=== PATIENT | female | born 1995 | race Caucasian/White ===

== ENCOUNTER 2016-11-05 09:32 | Outpatient (CLI) | payer MEDICAID ==
[2016-11-05] MEDS ORDERED: AZITHROMYCIN 250 MG TABLET ONE (10:04)
[2016-11-05 10:32] LABS: APPEARANCE,URINE CLOUDY; BILIRUBIN,URINE NEGATIVE (NEGATIVE); GLUCOSE, URINE NEGATIVE (NEGATIVE); KETONES,URINE NEGATIVE (NEGATIVE); LEUKOCYTE ESTERASE,URINE LARGE (NEGATIVE); NITRITE,URINE NEGATIVE (NEGATIVE); PROTEIN,URINE 100 mg/dL (NEGATIVE); URINE SPECIFIC GRAVITY 1.018
[2016-11-05 10:38] LABS: URINE BARBITURATES SCREEN NEGATIVE; URINE METHADONE SCREEN NEGATIVE; URINE OPIATES LOW NEGATIVE; URINE PHENCYCLIDINE SCREEN NEGATIVE
[2016-11-05] MEDS ORDERED: AZITHROMYCIN 1 GM SUSP PACKET PO ONE (11:30)
--- NOTE | 2016-11-05 12:16 | Non Stress Test Report ---
Non Stress Test Datetime Report Generated by CPN: 11/05/2016 12:15 DEMOGRAPHIC EGA NST: 36.6 INDICATION Indication for Study: Ordered by Provider Indication for Study (NST) Other: LC MONITORING Monitor Explained: Monitor Explained; Test Explained; Patient Verbalized Understanding Time on Monitor: 11/05/2016 09:56 Time off Monitor: 11/05/2016 11:05 NST Duration: 69 NST INTERVENTIONS NST Interventions: PO Hydration Physician Notified NST: Dr. Marx BABY A: [id number] BABY A Movement : Present Contraction Frequency : irregular FHR Baseline : 135 Accelerations : 15X15 Decelerations : None Variability : Moderate 6-25bpm NST Review: Meets Criteria for Reactive NST NST Review and Verified By : Wesley Bellavance RNC NST Results: Reactive NST REPORT Report Trigger: Send Report
--- NOTE | 2016-11-06 18:11 | L&D Progress Notes ---
PROGRESS NOTES Datetime Report Generated by CPN: 11/06/2016 18:10 PROGRESS NOTE Procedures: Artificial ROM; Sterile Speculum Exam Plan: Continue Present Management Informed Consent Obtained: Vaginal Delivery Vital Signs : Reviewed Comment: AROM clear fluid S/p 2 doses pcn continue present mgmt anticipate VAGINAL EXAM Dilatation: 9 Dilatation: 6 Effacement: 100 Effacement: 100 Station: 0 Station: 0 Contractions: 3-4 min apart Contractions: 2 min apart MEMBRANES Membranes: Ruptured Membranes: Bulging Amniotic Fluid Color: Clear FETUS A FHR - Baseline: 150 Monitoring: External US Variability: Moderate 6-25bpm Accelerations: 15X15 Decelerations: Variable FHR Category: Category II Estimated Weight (gm): 3400 Presentation: Vertex SIGNATURE SIGNATURE: [id number];[id number] SIGNATURE: [id number] Assignment: Lamberto Freedman DO Signature: with User ID: [email or web address] : with User ID: [email or web address]
--- NOTE | 2016-11-06 23:59 | Delivery Summary ---
Del Sum A-C Datetime Report Generated by CPN: 11/06/2016 23:59 DELIVERY PERSONNEL DELIVERY PERSONNEL: [id number] Delivery Doctor:: Shantelle Parikh CNM Nurse Cap Sewer Certified:: Shantelle Parikh CNM Labor and Delivery Nurse:: Carina Weeks RNnursing techn Nurse:: Justine Mackay RN Yarn Examiner Skeins/DOG BATHER: Alma Green, ST MATERNAL INFORMATION Delivery Anesthesia: Epidural Medications After Delivery: Pitocin Drip 20 Units/1000ml NSS Estimated Blood Loss (ml): 250 Maternal Complications: None Provider Comments: Pt progressed to complete, + 3 with urge to push, head, shoulders, and body delivered without difficulty, with cry and respirations with stimulation, taken to warmer after stimulation on maternal abdomen, then good results with stimulation, spontaneous delivery of placenta via allen, appears intact, 3 VC, vagina and perineum inspected, no laceraitons noted, hemostasis acheived with external fundal massage and IV pitocin, rouine pp care, mother and in stable condition. LABOR SUMMARY EDC: 11/27/2016 00:00 No. Babies in Womb: 1 Attempted: No Labor Anesthesia: Epidural LABOR INFORMATION Reason for Induction: Not Applicable Onset of Labor: 11/06/2016 14:23 Complete Dilatation: 11/06/2016 20:23 Group B Beta Strep: Negative Antibiotics # of Doses: 2 Antibiotics Time of Last Dose: 1742 Name of Antibiotic Given: Pencillin Steroids Given: None Reason Steroids Not Administered: Not Applicable MEMBRANES Membranes Rupture Method: Artificial Rupture of Membranes: 11/06/2016 17:43 Length of Rupture (hr): 3.85 Amniotic Fluid Color: Clear Amniotic Fluid Amount: Large Amniotic Fluid Odor: Normal STAGES OF LABOR Stage 1 hr: 6 Stage 1 min: 0 Stage 2 hr: 1 Stage 2 min: 11 Stage 3 hr: 0 Stage 3 min: 4 Total Time in Labor hr: 7 Total Time in Labor min: 15 VAGINAL DELIVERY Episiotomy: None Laceration Type: None Laceration Repair: No Laceration Repair Note: n/a Sponge Count Correct: Yes Sharps Count Correct: N/A CSECTION DELIVERY Primary Indication: N/A Secondary Indication: N/A CSection Incision: N/A BABY A INFORMATION Infant Delivery Date/Time: 11/06/2016 21:34 Method of Delivery: Vaginal Born in Route : No : N/A Forceps: N/A Vacuum Extraction: N/A Shoulder Dystocia : No PRESENTATION/POSITION BABY A Presentation: Cephalic Cephalic Presentation: Vertex Vertex Position: Right Occipital Anterior Breech Presentation: N/A PLACENTA INFORMATION BABY A Placenta Delivery Time : 11/06/2016 21:38 Placenta Method of Delivery: Spontaneous Placenta Status: Delivered SCORES BABY A Heart Rate 1 min: >100 bpm Resp Effort 1 min: Slow, Irregular Reflex Irritability 1 min: Cough or Sneeze or Pulls Away Muscle Tone 1 min: Some Flexion of Extremities Color 1 min: Body [place], Extremities Blue Resuscitation Effort 1 min: Tactile Stimulation SCORE 1 MIN: 7 Heart Rate 5 min: >100 bpm Resp Effort 5 min: Slow, Irregular Reflex Irritability 5 min: Cough or Sneeze or Pulls Away Muscle Tone 5 min: Active Motion Color 5 min: Body [place], Extremities Blue Resuscitation Effort 5 min: Tactile Stimulation SCORE 5 MIN: 8 INFORMATION BABY A Gestational Age at Delivery: 37.0 Gestational Status: Early Term- 37- 38.6 Weeks Infant Outcome : Liveborn Infant Condition : Stable Infant Sex: Male IDENTIFICATION BABY A Infant Verification Date/Time: 11/06/2016 21:42 ID Band Number: [id number] Mother's Name Verified: Yes Infant RN Verifying Infant: S. Lattibteresitair, RN Additional Verifying Personnel: R. Felixel, DOG BATHER WEIGHT/LENGTH BABY A Birthweight (gm): 3165 Weight (lb): 7 Weight (oz): 0 Infant Length (in): 19.50 Length (cm): 49.53 CORD INFORMATION BABY A No. Cord Vessels: 3 Nuchal Cord : N/A Cord Blood Taken: Yes-For Storage (Mom's Blood type +) Suction: Mouth; Nose ASSESSMENT BABY A Skin to Skin: Yes Skin to Skin Time (min): 45 SIGNATURES Assignment: Lamberto Freedman DO Signature: with User ID: [email or web address] : with User ID: [email or web address]
== END 2016-11-05 12:07 | disposition home or self-care (01) ==
LOC: LC 09:32 → MERGE 09:32 → LC 12:07
PROVIDERS: ATTEND Student in an Organized Health Care Education/Training Program
PROC: 4A1HXCZ Monitoring of Products of Conception, Cardiac Rate, External Approach (ICD-10-PCS; principal; 2016-11-05)
DX: O98.813 Other maternal infectious and parasitic diseases complicating pregnancy, third trimester (principal); A74.9 Chlamydial infection, unspecified; Z3A.36 36 weeks gestation of pregnancy
CPT/HCPCS: 59025; 81001; 80307; G0480 ×2; Q0144

== ENCOUNTER 2016-11-06 12:07 | Inpatient (IN) | payer MEDICAID ==
[2016-11-06] MEDS ORDERED: HYDROXYZINE PAMOATE 50 MG CAPSULE PO ONE (12:32)
[2016-11-06] MEDS ORDERED: HYDROXYZINE PAMOATE 50 MG CAPSULE ONE (12:36)
[2016-11-06 13:08] LABS: APPEARANCE,URINE SLIGHTLY-CLOUDY; BILIRUBIN,URINE NEGATIVE (NEGATIVE); GLUCOSE, URINE NEGATIVE (NEGATIVE); KETONES,URINE 20 mg/dL (NEGATIVE); LEUKOCYTE ESTERASE,URINE MODERATE (NEGATIVE); NITRITE,URINE NEGATIVE (NEGATIVE); PROTEIN,URINE 30 mg/dL (NEGATIVE)
[2016-11-06 13:30] LABS: URINE BARBITURATES SCREEN NEGATIVE; URINE METHADONE SCREEN NEGATIVE; URINE OPIATES LOW NEGATIVE; URINE PHENCYCLIDINE SCREEN NEGATIVE
[2016-11-06] MEDS ORDERED: RINGERS SOLUTION,LACTATED 1,000 ML IV PRN (13:34)
[2016-11-06] MEDS ORDERED: PENICILLIN G POTASSIUM 5,000,000 UNIT in DEXTROSE 5%-WATER 100 ML IV ONE (13:34)
[2016-11-06] MEDS ORDERED: PENICILLIN G-K 5 MILLION UNIT VIAL ONE ×2 (13:39→17:17)
[2016-11-06 13:57] LABS: ABSOLUTE BASOPHILS # (AUTO) 0.1 10^3/uL (0.0-0.2); ABSOLUTE EOSINOPHILS # (AUTO) 0.1 10^3/uL (0.0-0.6); ABSOLUTE LYMPHOCYTES (AUTO) 1.3 10^3/uL (0.5-4.7); ABSOLUTE MONOCYTES (AUTO) 0.6 10^3/uL (0.1-1.4); ABSOLUTE NEUT (AUTO) 11.3 10^3/uL (1.7-8.2); BASOPHILS % (AUTO) 0.5 % (0-2); EOSINOPHILS % (AUTO) 0.5 % (0-6); HEMOGLOBIN 13.4 g/dL (12.0-15.5); HGB HCT DIFFERENCE 2.2; LYMPHOCYTES % (AUTO) 9.9 % (13-45); MEAN CORPUSCULAR HEMOGLOBIN 32.2 pg (27.0-33.4); MEAN CORPUSCULAR HGB CONC 35.1 g/dL (32.0-36.0); MEAN CORPUSCULAR VOLUME 92 fl (80-97); MONOCYTES % (AUTO) 4.3 % (3-13); RED BLOOD COUNT 4.14 10^6/uL (3.72-5.28); RED CELL DISTRIBUTION WIDTH 13.7 % (11.5-14.0); SEGMENTED NEUTROPHILS % (AUTO) 84.8 % (42-78); WHITE BLOOD COUNT 13.3 10^3/uL (4.0-10.5)
[2016-11-06] MEDS ORDERED: OXYTOCIN/NORMAL SALINE 20 UNIT/1,000 ML RTUINJ ONE (14:57)
[2016-11-06] MEDS ORDERED: LIDOCAINE 1% INJ-PF (10 MG/ML) 30 ML SDV ONE (14:57)
[2016-11-06] MEDS ORDERED: MISOPROSTOL 0.2 MG TABLET ONE (14:57)
[2016-11-06] MEDS ORDERED: FENTANYL CITRATE INJ/PF 100 MCG/2 ML AMPUL ONE (15:38)
[2016-11-06] MEDS ORDERED: EPHEDRINE SULFATE INJ 50 MG/1 ML AMPULE ONE (15:38)
[2016-11-06] MEDS ORDERED: FENTANYL/BUPIVACAINE/NS/PF 200 MCG/100 ML RTUINJ EPI ONE (15:39)
[2016-11-06] MEDS ORDERED: BUPIVACAINE HCL 0.25 % INJ/PF (2.5 MG/1 ML) 30 ML VIAL ONE (15:39)
[2016-11-06] MEDS ORDERED: PHENYLEPHRINE HCL INJ/PF 10 MG/1 ML SDV ONE (15:39)
[2016-11-06] MEDS ORDERED: PENICILLIN G POTASSIUM 2,500,000 UNIT in DEXTROSE 5%-WATER 50 ML IV SCH (17:35)
[2016-11-06] MEDS ORDERED: OXYTOCIN/NORMAL SALINE 20 UNIT/1,000 ML RTUINJ IV PRN ×2 (19:31→21:50)
[2016-11-06] MEDS ORDERED: BENZOCAINE/MENTHOL AEROSOL SPRAY 56 ML TOP PRN (21:50)
[2016-11-06] MEDS ORDERED: DIPH/PERTUSS(ACELL)/TETANUS VAC/PF 0.5 ML SYR (>=10YO) IM PRN (21:50)
[2016-11-06] MEDS ORDERED: ACETAMINOPHEN WITH CODEINE #3 TABLET PO PRN ×2 (21:50)
[2016-11-06] MEDS ORDERED: ZOLPIDEM TARTRATE 5 MG TABLET PO PRN (21:50)
[2016-11-06] MEDS ORDERED: MEASLES,MUMPS&RUBELLA VACC/PF 0.5 ML VIAL SUBCUT PRN (21:50)
[2016-11-06] MEDS ORDERED: DIBUCAINE 1% OINTMENT 28 GM TP PRN (21:50)
[2016-11-07] MEDS: IBUPROFEN 800 MG TABLET PO SCH ×4 (00:10→21:47)
[2016-11-07 07:27] LABS: HEMATOCRIT 34.3 % (36.0-47.0); HEMOGLOBIN 11.7 g/dL (12.0-15.5); HGB HCT DIFFERENCE 0.8; MEAN CORPUSCULAR HEMOGLOBIN 31.8 pg (27.0-33.4); MEAN CORPUSCULAR HGB CONC 34.2 g/dL (32.0-36.0); MEAN CORPUSCULAR VOLUME 93 fl (80-97); RED BLOOD COUNT 3.69 10^6/uL (3.72-5.28); RED CELL DISTRIBUTION WIDTH 13.5 % (11.5-14.0); WHITE BLOOD COUNT 12.2 10^3/uL (4.0-10.5)
[2016-11-07] MEDS: SENNOSIDES/DOCUSATE 8.6-50 MG 1 EACH TABLET PO SCH (10:00)
[2016-11-07] MEDS: FERROUS SULFATE 325 MG TABLET PO SCH ×2 (10:00→17:10)
[2016-11-07] MEDS: PRENATAL VITAMIN W-O CA NO5/FE FUMARATE/FA CAPSULE PO SCH (10:00)
[2016-11-07] MEDS: DOCUSATE SODIUM 100 MG CAPSULE PO SCH ×2 (10:00→17:10)
--- NOTE | 2016-11-07 14:01 | PDOC PROGRESS REPORT ---
Subjective-OB Subjective: Post Delivery Day: 21 year old. Denies any needs at this time. Pt doing well, no concerns. She reports light bleeding, regular diet and voiding without difficulty. Physical Exam (OB) Vital Signs: Temp Pulse Resp BP Pulse Ox 98.4 F 68 15 113/76 100 11/07/16 07:38 11/07/16 07:38 11/07/16 07:38 11/07/16 07:38 11/07/16 07:38 Intake & Output 11/06/16 11/07/16 11/08/16 06:59 06:59 06:59 Weight 65.8 kg - PIH/Pre-Eclampsia Clonus: Negative - Lochia Lochia Amount: Scant < 10 ml Lochia Color: Rubra/Red - Abdomen Description: Tender, Soft, Flat Hernia Present: No Fundal Description: Firm, Midline Fundal Height: u/u - u/2 Objective-Diagnostic Laboratory: 11/07/16 06:50 11/06/16 11/07/16 13:45 06:50 WBC 12.2 H RBC 3.69 L Hgb 11.7 L Hct 34.3 L MCV 93 MCH 31.8 MCHC 34.2 RDW 13.5 Plt Count 111 L Blood Type A POSITIVE Antibody Screen NEGATIVE Assessment and Plan(PN) - Assessment and Plan (1) Vaginal delivery Is this a current diagnosis for this admission?: Yes - Time Spent with Patient Time with patient: Less than 15 minutes Medications reviewed and adjusted accordingly: Yes - Disposition Anticipated Discharge: Home Within: within 24 hours
[2016-11-08] MEDS: IBUPROFEN 800 MG TABLET PO SCH (05:38)
[2016-11-08] MEDS: DOCUSATE SODIUM 100 MG CAPSULE PO SCH (09:23)
[2016-11-08] MEDS: FERROUS SULFATE 325 MG TABLET PO SCH (09:24)
[2016-11-08] MEDS: SENNOSIDES/DOCUSATE 8.6-50 MG 1 EACH TABLET PO SCH (09:25)
[2016-11-08] MEDS: PRENATAL VITAMIN W-O CA NO5/FE FUMARATE/FA CAPSULE PO SCH (09:25)
[2016-11-08 09:31] VITALS: BP 110/73
--- NOTE | 2016-11-08 10:02 | PDOC DISCHARGE SUMMARY ---
Final Diagnosis Discharge Date: 11/08/16 Discharge Data - Discharge Medication Home Medications: Sertraline HCl [Zoloft 50 mg Tablet] 50 mg PO DAILY 11/05/16 Prenat 115/Iron Fum/Folic/Dss [ 19 Tablet] 1 tab PO DAILY 11/06/16 Sertraline HCl [Zoloft 50 mg Tablet] 1 tab PO DAILY 11/06/16 Docusate Sodium [Colace 100 mg Capsule] 100 mg PO BID #60 capsule 11/08/16 Ibuprofen [Motrin 800 mg Tablet] 800 mg PO Q8 #60 tablet 11/08/16 Gestational Age: 37 Reason(s) for Admission: Onset of Labor Admission Note: gbs unknown, pcn given, Procedures: NST Intrapartum Procedure(s): Spontaneous Vaginal Delivery - [place] Data Baby 1 Male at 1 minute: 9 at 5 minutes: 9 Home with Mother: Yes Complications: No - Diagnosis Test Laboratory: Temp Pulse Resp BP Pulse Ox 97.8 F 62 17 110/73 96 11/08/16 07:37 11/08/16 09:25 11/08/16 07:37 11/08/16 09:25 11/08/16 07:37 11/06/16 11/06/16 11/07/16 12:00 13:45 06:50 RBC 4.14 3.69 L Hgb 13.4 11.7 L Hct 38.0 34.3 L Urine Opiates Screen NEGATIVE - Discharge information/Instructions Discharge Activity: Activity As Tolerated, Pelvic Rest, No tub bath Discharge Diet: Regular Disposition: HOME, SELF-CARE Follow up with: [facility] in: 4, Weeks
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
--- NOTE | 2016-11-15 11:17 | Delivery Summary ---
Del Sum A-C Datetime Report Generated by CPN: 11/15/2016 11:17 DELIVERY PERSONNEL DELIVERY PERSONNEL: [id number] Delivery Doctor:: Shantelle Parikh CNM Nurse Ppa Teacher Certified:: Shantelle Parikh CNM Labor and Delivery Nurse:: Carina Weeks RNaccess spec Nurse:: Justine Mackay RN City Route Driver/PROCESS CONTROL MANAGER: Alma Green, ST MATERNAL INFORMATION Delivery Anesthesia: Epidural Medications After Delivery: Pitocin Drip 20 Units/1000ml NSS Estimated Blood Loss (ml): 250 Maternal Complications: None Provider Comments: Pt progressed to complete, + 3 with urge to push, head, shoulders, and body delivered without difficulty, with cry and respirations with stimulation, taken to warmer after stimulation on maternal abdomen, then good results with stimulation, spontaneous delivery of placenta via allen, appears intact, 3 VC, vagina and perineum inspected, no laceraitons noted, hemostasis acheived with external fundal massage and IV pitocin, rouine pp care, mother and in stable condition. LABOR SUMMARY EDC: 11/27/2016 00:00 No. Babies in Womb: 1 Attempted: No Labor Anesthesia: Epidural LABOR INFORMATION Reason for Induction: Not Applicable Onset of Labor: 11/06/2016 14:23 Complete Dilatation: 11/06/2016 20:23 Group B Beta Strep: Negative Antibiotics # of Doses: 2 Antibiotics Time of Last Dose: 1742 Name of Antibiotic Given: Pencillin Steroids Given: None Reason Steroids Not Administered: Not Applicable MEMBRANES Membranes Rupture Method: Artificial Rupture of Membranes: 11/06/2016 17:43 Length of Rupture (hr): 3.85 Amniotic Fluid Color: Clear Amniotic Fluid Amount: Large Amniotic Fluid Odor: Normal STAGES OF LABOR Stage 1 hr: 6 Stage 1 min: 0 Stage 2 hr: 1 Stage 2 min: 11 Stage 3 hr: 0 Stage 3 min: 4 Total Time in Labor hr: 7 Total Time in Labor min: 15 VAGINAL DELIVERY Episiotomy: None Laceration #1: None Laceration Extension #1: N/A Laceration Repair: No Laceration Repair Note: n/a Sponge Count Correct: Yes Sharps Count Correct: N/A CSECTION DELIVERY Primary Indication: N/A Secondary Indication: N/A CSection Incision: N/A BABY A INFORMATION Delivery Date/Time: 11/06/2016 21:34 Method of Delivery: Vaginal Born in Route : No : N/A Forceps: N/A Vacuum Extraction: N/A Shoulder Dystocia : No PRESENTATION/POSITION BABY A Presentation: Cephalic Presentation: Cephalic Presentation: Cephalic Cephalic Presentation: Vertex Vertex Position: Right Occipital Anterior Breech Presentation: N/A PLACENTA INFORMATION BABY A Placenta Delivery Time : 11/06/2016 21:38 Placenta Method of Delivery: Spontaneous Placenta Status: Delivered SCORES BABY A Heart Rate 1 min: >100 bpm Resp Effort 1 min: Slow, Irregular Reflex Irritability 1 min: Cough or Sneeze or Pulls Away Muscle Tone 1 min: Some Flexion of Extremities Color 1 min: Body [employer], Extremities Blue Resuscitation Effort 1 min: Tactile Stimulation SCORE 1 MIN: 7 Heart Rate 5 min: >100 bpm Resp Effort 5 min: Slow, Irregular Reflex Irritability 5 min: Cough or Sneeze or Pulls Away Muscle Tone 5 min: Active Motion Color 5 min: Body [employer], Extremities Blue Resuscitation Effort 5 min: Tactile Stimulation SCORE 5 MIN: 8 INFANT INFORMATION BABY A Gestational Age at Delivery: 37.0 Gestational Status: Early Term- 37- 38.6 Weeks Infant Outcome : Liveborn Infant Condition : Stable Sex: Male Sex: Male IDENTIFICATION BABY A Infant Verification Date/Time: 11/06/2016 21:42 ID Band Number: [id number] Mother's Name Verified: Yes RN Verifying Infant: S. Lattibeaudeir, RN Additional Verifying Personnel: [employer], PROCESS CONTROL MANAGER WEIGHT/LENGTH BABY A Birthweight (gm): 3165 Weight (lb): 7 Infant Weight (oz): 0 Infant Length (in): 19.50 Length (cm): 49.53 CORD INFORMATION BABY A No. Cord Vessels: 3 Nuchal Cord : N/A Cord Blood Taken: Yes-For Storage (Mom's Blood type +) Infant Suction: Mouth; Nose ASSESSMENT BABY A Skin to Skin: Yes Skin to Skin Time (min): 45 SIGNATURES Assignment: Lamberto Freedman DO Signature: with User ID: [email or web address]
== END 2016-11-08 13:05 | disposition home or self-care (01) | DRG 775 ==
LOC: LC 12:07 → LR 13:33 → 2S 23:44
PROVIDERS: ADMIT Obstetrics & Gynecology; ATTEND Obstetrics & Gynecology
PROC: 10E0XZZ Delivery of Products of Conception, External Approach (ICD-10-PCS; principal; 2016-11-06)
DX: O99.824 Streptococcus B carrier state complicating childbirth (principal); O99.334 Smoking (tobacco) complicating childbirth; F17.210 Nicotine dependence, cigarettes, uncomplicated; O99.344 Other mental disorders complicating childbirth; F41.8 Other specified anxiety disorders; O99.324 Drug use complicating childbirth; F12.90 Cannabis use, unspecified, uncomplicated; Z3A.37 37 weeks gestation of pregnancy; Z37.0 Single live birth
CPT/HCPCS: 36415; 80307; 81005; 85025; 85027; 86592; 86850; 86900; 86901; 94760; J2370; J2540; J2590; J3010; J3490